=== PATIENT | female | born 1980 | race Caucasian/White ===

== ENCOUNTER 2022-01-27 19:51 | Emergency (ER) | payer OTHER ==
[2022-01-27] MEDS ORDERED: AMOX/CLAV 875 MG/125 MG TABLET PO STA (21:56)
[2022-01-27] MEDS ORDERED: TETANUS/DIPHTHERIA/PERTUSSIS 0.5 ML SYRINGE IM ONE (21:56)
--- NOTE | 2022-01-27 21:59 | ED Physician Documentation ---
History of Present Illness - Stated complaint Stated Complaint: LEFT HAND PX - Chief complaint Chief Complaint: Ext Problem - History obtained from History obtained from: Patient - History of Present Illness Timing: Yesterday Pain level max: 6 Pain level now: 6 - Additonal information Additional information: Patient is a 41-year-old female who presents to the emergency department with left hand pain and swelling. She states that she was breaking up a fight between dogs yesterday. Today she noticed increased redness, swelling and pain. Unknown last tetanus shot. She is not allergic to any medications. Worse with movement, better with rest. No drainage. Review of Systems Constitutional: denies: Fever GI: denies: Vomiting : denies: Now [facility] PAST MEDICAL HISTORY - Past Medical History Past Medical History: No - Past Surgical History Past Surgical History: Yes General: Cholecystectomy - Present Medications Home Medications: Ambulatory Orders Medication Instructions Recorded Confirmed Amox/Clav 875/125 [Augmentin] 1 tab PO Q12H #20 tablet 01/27/22 - Allergies Allergies/Adverse Reactions: Allergies Allergy/AdvReac Type Severity Reaction Status Date / Time No Known Drug Allergies Allergy Verified 01/27/22 21:58 - Social History Does the pt smoke?: No Smoking Status: Never smoker Does the pt drink ETOH?: Yes Does the pt have substance abuse?: No - Immunizations Immunizations are current?: Yes PD ED PE NORMAL - Vitals Vital signs reviewed: Yes - General General: Alert and oriented X 3, No acute distress - Derm Derm: Warm and dry - Extremities Extremities: Other (Small puncture to the webspace between the thumb and index finger of the left hand. Mild erythema and swelling. No drainage. No evidence of deep space infection in the hand. Full range of motion of the fingers. No fusiform swelling. NVI) - Neuro Neuro: Alert and oriented X 3 Results - Vitals Vitals: Vital Signs - 24 hr 01/27/22 01/27/22 20:00 22:17 Temperature 36.7 C 36.7 C Heart Rate 63 61 Respiratory 16 16 Rate Blood Pressure 150/82 H 132/81 H O2 Saturation 100 99 Oxygen O2 Source Room air PD MEDICAL DECISION MAKING - ED course Complexity details: considered differential, d/w patient ED course: Patient with a dog bite to the left hand. Appears secondarily infected. Will try on Augmentin. Given a tetanus shot as well. No adverse reaction to the Augmentin. We will have her follow-up with her doctor for further care. She should improve in the next 24 hours. Patient counseled regarding signs and symptoms for which I believe and urgent re-evaluation would be necessary. Patient with good understanding of and agreement to plan and is comfortable going home at this time This document was made in part using voice recognition software. While efforts are made to proofread this document, sound alike and grammatical errors may occur. Departure - Departure Disposition: 01 Home, Self Care Clinical Impression: Dog bite Qualifiers: Encounter type: initial encounter Qualified Code(s): W54.0XXA - Bitten by dog, initial encounter Cellulitis Qualifiers: Site of cellulitis: extremity Site of cellulitis of extremity: upper extremity Laterality: left Qualified Code(s): L03.114 - Cellulitis of left upper limb Condition: Good Instructions: ED Bite Dog Follow-Up: Aba Perdue MD [Primary Care Provider] - Within 1 week Prescriptions: Amox/Clav 875/125 [Augmentin] 1 tab PO Q12H #20 tablet Comments: Take all antibiotics until gone. Return if you worsen. You should notice improvement within the next 24 hours. You can use Motrin or Tylenol as needed for pain. You were given a tetanus shot today. Discharge Date/Time: 01/27/22 22:17
[2022-01-27 22:18] VITALS: BP 132/81
== END 2022-01-27 22:17 | disposition home or self-care (01) ==
LOC: ED 19:51
DX: S61.452A Open bite of left hand, initial encounter (principal); L03.114 Cellulitis of left upper limb; W54.0XXA Bitten by dog, initial encounter; Y93.K9 Activity, other involving animal care
CPT/HCPCS: 90471; 90715; 99283; A9270